=== PATIENT | male | born 1935 | race Two or more races ===

== ENCOUNTER 2017-02-18 02:01 | Emergency (ER) | payer MEDICARE ==
[2017-02-18 02:20] VITALS: TEMP 97.8
--- NOTE | 2017-02-18 02:47 | XR ---
EXAMINATION TYPE: XR chest 2V DATE OF EXAM: 02/18/2017 COMPARISON: NONE HISTORY: Cough TECHNIQUE: Frontal and lateral views of the chest are obtained. FINDINGS: There is a relative poor inspiration. There is no heart failure. Heart size is normal. I s ee no pleural effusion. There is spurring in the thoracic spine. There is slight coarsening of inters titial markings. IMPRESSION: Mild pulmonary fibrotic changes. No acute lung disease.
[2017-02-18] MEDS ORDERED: methylPREDNISolone SOD SUCCI 125 MG/2 ML VIAL IV STA (02:52)
[2017-02-18] MEDS ORDERED: SODIUM CHLORIDE 0.9% 1,000 ML IV STA (02:52)
[2017-02-18] MEDS ORDERED: SODIUM CHLORIDE 0.9% 500 ML IV STA (02:52)
[2017-02-18] MEDS ORDERED: IPRATROPIUM-ALBUTEROL 3 ML NEB INHALATION STA (02:52)
[2017-02-18] MEDS ORDERED: KETOROLAC 30 MG/ML 1 ML VIAL IVP STA (02:54)
[2017-02-18] MEDS ORDERED: MORPHINE SULFATE 10 MG/ML SYRINGE IVP STA (02:54)
[2017-02-18] MEDS ORDERED: MORPHINE SULFATE 4 MG/ML SYRINGE IVP STA (03:07)
--- NOTE | 2017-02-18 03:18 | ED ---
General Adult HPI - General Chief complaint: Abdominal Pain Stated complaint: Rib Pain Time Seen by Provider: 02/18/17 02:18 Source: patient, family, RN notes reviewed, old records reviewed Mode of arrival: ambulatory Limitations: no limitations - History of Present Illness Initial comments: This is an 81-year-old male to the ER for evaluation. Patient coming in for several pain and right-sided rib pain shortness of breath. There is 4 days of similar symptoms. Restating cough and congestion medication without help. Patient has history of approximately COPD and heart disease. Patient denies sore chest pain no fevers but has not been feeling well. Patient's old recent hospitalization was when he did have stent placed about was quite sometime ago. No other known sick contacts. - Related Data Home Medications Medication Instructions Recorded Confirmed Calcium Polycarbophil [Fibercon] 625 mg PO DAILY 10/31/15 11/04/15 Finasteride [Proscar] 5 mg PO DAILY 10/31/15 10/31/15 Insulin NPH Human Isophane 30 unit SQ QAM 10/31/15 11/04/15 [NovoLIN N] Insulin Regular, Human [NovoLIN R] 0 unit SQ TID PRN 10/31/15 10/31/15 Levothyroxine Sodium [Synthroid] 125 mcg PO DAILY 10/31/15 10/31/15 Lisinopril [Zestril] 10 mg PO DAILY 10/31/15 10/31/15 Metoprolol Tartrate [Lopressor] 12.5 mg PO BID 10/31/15 10/31/15 Tamsulosin HCl [Flomax] 0.4 mg PO BID 10/31/15 10/31/15 diphenhydrAMINE HCL [Vicks 25 mg PO HS 10/31/15 11/04/15 Qlearquil Nighttime] Isosorbide Mononitrate ER [Imdur] 30 mg PO DAILY 11/04/15 11/04/15 Previous Rx's Medication Instructions Recorded Aspirin 325 mg PO DAILY #30 tab 11/05/15 Atorvastatin [Lipitor] 80 mg PO HS #30 tab 11/05/15 Clopidogrel [Plavix] 75 mg PO DAILY #30 tab 11/05/15 Isosorbide Mononitrate ER [Imdur] 30 mg PO DAILY #30 tab.er.24h 11/05/15 Lisinopril [Zestril] 10 mg PO DAILY #30 tab 11/05/15 Metoprolol Tartrate [Lopressor] 25 mg PO BID #60 tab 11/05/15 Nitroglycerin Sl Tabs [Nitrostat] 0.4 mg SUBLINGUAL Q5M PRN #25 tab 11/05/15 Zolpidem [Ambien] 5 mg PO HS PRN #5 tab 11/05/15 Albuterol Sulfate [Proair Hfa] 1 - 2 puff INHALATION Q4H PRN #1 02/18/17 inhaler Azithromycin [Zithromax Z-pack] 0 mg PO DIRECTED #1 pack 02/18/17 Benzonatate [Tessalon Perles] 100 mg PO TID PRN #30 capsule 02/18/17 HYDROcodone/APAP 5-325MG [[facility] 1 tab PO Q6HR PRN #20 tab 02/18/17 5-325] Allergies Allergy/AdvReac Type Severity Reaction Status Date / Time No Known Allergies Allergy Verified 10/31/15 15:38 Review of Systems ROS Statement: Those systems with pertinent positive or pertinent negative responses have been documented in the HPI. ROS Other: All systems not noted in ROS Statement are negative. Past Medical History Past Medical History: Chest Pain / Angina, Diabetes Mellitus, GERD/Reflux, Hyperlipidemia, Hypertension, Prostate Disorder, Thyroid Disorder, Vascular Disorder Additional Past Medical History / Comment(s): bad circulation legs, "hands shake ", enlarged prostate History of Any Multi-Drug Resistant Organisms: None Reported Past Surgical History: Cholecystectomy, Heart Catheterization Additional Past Surgical History / Comment(s): pt received heart cath with 1 stent to om radial approach 11/04/2015, cataracts removed from each eye Past Anesthesia/Blood Transfusion Reactions: No Reported Reaction Additional Past Anesthesia/Blood Transfusion Reaction / Comment(s): pt is a jehovah witness, no blood transfusions Past Psychological History: No Psychological Hx Reported Smoking Status: Former smoker Past Alcohol Use History: Rare Past Drug Use History: None Reported - Past Family History Mother Family Medical History: No Reported History Father Family Medical History: Coronary Artery Disease (CAD), Vascular Disorder General Exam Limitations: no limitations General appearance: alert, in no apparent distress Head exam: Present: atraumatic, normocephalic, normal inspection Eye exam: Present: normal appearance, PERRL, EOMI. Absent: scleral icterus, conjunctival injection, periorbital swelling ENT exam: Present: normal exam, mucous membranes moist Neck exam: Present: normal inspection. Absent: tenderness, meningismus, lymphadenopathy Respiratory exam: Present: normal lung sounds bilaterally. Absent: respiratory distress, wheezes, rales, rhonchi, stridor Cardiovascular Exam: Present: regular rate, normal rhythm, normal heart sounds, other (Right rib tenderness). Absent: systolic murmur, diastolic murmur, rubs, gallop, clicks GI/Abdominal exam: Present: soft, normal bowel sounds. Absent: distended, tenderness, guarding, rebound, rigid Extremities exam: Present: normal inspection, full ROM, normal capillary refill. Absent: tenderness, pedal edema, joint swelling, calf tenderness Back exam: Present: normal inspection Neurological exam: Present: alert, oriented X3, CN II-XII intact Psychiatric exam: Present: normal affect, normal mood Skin exam: Present: warm, dry, intact, normal color. Absent: rash Course Vital Signs 02/18/17 02/18/17 02/18/17 02:13 03:13 03:24 Temperature 97.8 F Pulse Rate 58 L 56 L 56 L Respiratory 18 17 Rate Blood Pressure 197/84 147/65 O2 Sat by Pulse 96 95 Oximetry 02/18/17 02/18/17 02/18/17 03:39 04:15 06:10 Temperature Pulse Rate 55 L 58 L 56 L Respiratory 18 17 Rate Blood Pressure 140/63 154/67 O2 Sat by Pulse 95 94 L Oximetry 02/18/17 06:38 Temperature Pulse Rate 64 Respiratory 17 Rate Blood Pressure 146/63 O2 Sat by Pulse 96 Oximetry - Reevaluation(s) Reevaluation #1: 02/18/17 05:16 Patient is still having significant pain, despite pain medications, patient is worse when he takes a deep breath worse when he coughs EKG Findings - EKG Comments: EKG Findings:: EKG shows sinus bradycardia rate of 59, VT 1:30, QRS 1:30, QTc 475 Medical Decision Making - Medical Decision Making 81 male the ER for evaluation of right-sided rib pain worse when he coughs. Extensive evaluation goes and find patient's pain. Patient refuses to stay for heart or further testing. Patient given pain control will be discharged home - Lab Data Result diagrams: 02/18/17 03:20 02/18/17 03:20 Lab Results 02/18/17 02/18/17 02/18/17 Range/Units 03:20 03:20 03:20 WBC 11.5 H (3.8-10.6) k/uL RBC 4.32 (4.30-5.90) m/uL Hgb 13.6 (13.0-17.5) gm/dL Hct 39.8 (39.0-53.0) % MCV 92.2 (80.0-100.0) fL MCH 31.4 (25.0-35.0) pg MCHC 34.1 (31.0-37.0) g/dL RDW 12.1 (11.5-15.5) % Plt Count 250 (150-450) k/uL Neutrophils % 70 % Lymphocytes % 15 % Monocytes % 10 % Eosinophils % 3 % Basophils % 1 % Neutrophils # 8.0 H (1.3-7.7) k/uL Lymphocytes # 1.8 (1.0-4.8) k/uL Monocytes # 1.1 H (0-1.0) k/uL Eosinophils # 0.3 (0-0.7) k/uL Basophils # 0.1 (0-0.2) k/uL PT (9.0-12.0) sec INR (<1.2) APTT (22.0-30.0) sec Sodium 132 L (137-145) mmol/L Potassium 4.7 (3.5-5.1) mmol/L Chloride 102 (98-107) mmol/L Carbon Dioxide 22 (22-30) mmol/L Anion Gap 8 mmol/L BUN 16 (9-20) mg/dL Creatinine 1.27 H (0.66-1.25) mg/dL Est GFR (MDRD) Af Amer >60 (>60 ml/min/1.73 sqM) Est GFR (MDRD) Non-Af 55 (>60 ml/min/1.73 sqM) Glucose 101 H (74-99) mg/dL Calcium 9.2 (8.4-10.2) mg/dL Magnesium 1.7 (1.6-2.3) mg/dL Total Bilirubin 0.5 (0.2-1.3) mg/dL AST 27 (17-59) U/L ALT 32 (21-72) U/L Alkaline Phosphatase 72 (38-126) U/L Total Creatine Kinase 751 H (55-170) U/L CK-MB (CK-2) 4.0 H* (0.0-2.4) ng/mL CK-MB (CK-2) Rel Index 0.5 Troponin I <0.012 (0.000-0.034) ng/mL NT-Pro-B Natriuret Pep pg/mL Total Protein 6.6 (6.3-8.2) g/dL Albumin 3.6 (3.5-5.0) g/dL Lipase (23-300) U/L 02/18/17 02/18/17 02/18/17 Range/Units 03:20 03:20 03:20 WBC (3.8-10.6) k/uL RBC (4.30-5.90) m/uL Hgb (13.0-17.5) gm/dL Hct (39.0-53.0) % MCV (80.0-100.0) fL MCH (25.0-35.0) pg MCHC (31.0-37.0) g/dL RDW (11.5-15.5) % Plt Count (150-450) k/uL Neutrophils % % Lymphocytes % % Monocytes % % Eosinophils % % Basophils % % Neutrophils # (1.3-7.7) k/uL Lymphocytes # (1.0-4.8) k/uL Monocytes # (0-1.0) k/uL Eosinophils # (0-0.7) k/uL Basophils # (0-0.2) k/uL PT 11.3 (9.0-12.0) sec INR 1.1 (<1.2) APTT 22.1 (22.0-30.0) sec Sodium (137-145) mmol/L Potassium (3.5-5.1) mmol/L Chloride (98-107) mmol/L Carbon Dioxide (22-30) mmol/L Anion Gap mmol/L BUN (9-20) mg/dL Creatinine (0.66-1.25) mg/dL Est GFR (MDRD) Af Amer (>60 ml/min/1.73 sqM) Est GFR (MDRD) Non-Af (>60 ml/min/1.73 sqM) Glucose (74-99) mg/dL Calcium (8.4-10.2) mg/dL Magnesium (1.6-2.3) mg/dL Total Bilirubin (0.2-1.3) mg/dL AST (17-59) U/L ALT (21-72) U/L Alkaline Phosphatase (38-126) U/L Total Creatine Kinase (55-170) U/L CK-MB (CK-2) (0.0-2.4) ng/mL CK-MB (CK-2) Rel Index Troponin I (0.000-0.034) ng/mL NT-Pro-B Natriuret Pep 608 pg/mL Total Protein (6.3-8.2) g/dL Albumin (3.5-5.0) g/dL Lipase 221 (23-300) U/L - Radiology Data Radiology results: report reviewed (Chest x-ray right rib x-rays negative for traumatic injury or fracture, CT a chest negative for acute disease), image reviewed Disposition Clinical Impression: Rib pain on right side, Bronchitis Disposition: HOME SELF-CARE Condition: Good Instructions: Rib Contusion (ED) Prescriptions: Albuterol Sulfate [Proair Hfa] 1 - 2 puff INHALATION Q4H PRN #1 inhaler PRN Reason: Shortness Of Breath Azithromycin [Zithromax Z-pack] 0 mg PO DIRECTED #1 pack Benzonatate [Tessalon Perles] 100 mg PO TID PRN #30 capsule PRN Reason: Cough HYDROcodone/APAP 5-325MG [[facility] 5-325] 1 tab PO Q6HR PRN #20 tab PRN Reason: Pain Referrals: Keven Porter MD [Primary Care Provider] - 1-2 days
[2017-02-18 03:36] LABS: Basophils # (A) 0.1 k/uL (0-0.2); Basophils % (A) 1 %; CH 32.9; CHCM 35.9; Eosinophils # (A) 0.3 k/uL (0-0.7); Eosinophils % (A) 3 %; HCT 39.8 % (39.0-53.0); HDW 2.73; HGB 13.6 gm/dL (13.0-17.5); Luc # (Auto) 0.18; Luc % (Auto) 2; Lymphocytes # (A) 1.8 k/uL (1.0-4.8); Lymphocytes % (A) 15 %; MCH 31.4 pg (25.0-35.0); MCHC 34.1 g/dL (31.0-37.0); MCV 92.2 fL (80.0-100.0); Monocytes # (A) 1.1 k/uL (0-1.0); Monocytes % (A) 10 %; Neutrophils % (A) 70 %; RBC 4.32 m/uL (4.30-5.90); RDW 12.1 % (11.5-15.5); WBC 11.5 k/uL (3.8-10.6); WBC (Perox) 11.34
[2017-02-18 03:49] LABS: INR 1.1 (<1.2); Partial Thromboplastin Time 22.1 sec (22.0-30.0); Prothrombin Time 11.3 sec (9.0-12.0)
[2017-02-18 03:50] LABS: ALT 32 U/L (21-72); AST 27 U/L (17-59); Alkaline Phosphatase 72 U/L (38-126); Anion Gap 8 mmol/L; Blood Urea Nitrogen 16 mg/dL (9-20); Calcium 9.2 mg/dL (8.4-10.2); Carbon Dioxide 22 mmol/L (22-30); Chloride 102 mmol/L (98-107); Glucose 101 mg/dL (74-99); Magnesium 1.7 mg/dL (1.6-2.3); Non-African American GFR(MDRD) 55 (>60 ml/min/1.73 sqM); Potassium 4.7 mmol/L (3.5-5.1); Sodium 132 mmol/L (137-145); Total Bilirubin 0.5 mg/dL (0.2-1.3); Total Protein 6.6 g/dL (6.3-8.2)
[2017-02-18 03:56] LABS: Creatine Kinase 751 U/L (55-170)
[2017-02-18 04:09] LABS: Troponin I <0.012 ng/mL (0.000-0.034)
--- NOTE | 2017-02-18 04:15 | XR ---
EXAM: XR Right Ribs, 2 Views CLINICAL HISTORY: Reason: Pain TECHNIQUE: Frontal and oblique views of the right ribs. COMPARISON: No relevant prior studies available. FINDINGS: Lungs: Unremarkable as visualized. No consolidation. Pleural space: Unremarkable. No pneumothorax. Bones/joints: Unremarkable. No acute fracture. Degenerative changes in the visualized thoracic spine Other findings: Calcification near the costochondral junction. IMPRESSION: No acute bony abnormality
[2017-02-18] MEDS ORDERED: RX INFO: IV CONTRAST WAS GIVEN 1 EACH MISC MISCELLANE PRN (05:04)
--- NOTE | 2017-02-18 06:10 | CT ---
EXAM: CT Angiography Chest With Intravenous Contrast CLINICAL HISTORY: Reason: Pain TECHNIQUE: Axial computed tomographic angiography images of the chest with intravenous contrast using pulmonary embolism protocol. CTDI is 270.3 mGy and DLP is 725.6 mGy-cm. This CT exam was performed using one or more of the following dose reduction techniques: automated exposure control, adjustment of the mA and/or kV according to patient size, and/or use of iterative reconstruction technique. MIP reconstructed images were created and reviewed. COMPARISON: No prior CT FINDINGS: Pulmonary arteries: No filling defects in the pulmonary arteries to suggest thrombus. Aorta: Calcified atherosclerotic tortuous thoracic aorta. No thoracic aortic aneurysm. Lungs: Mild emphysematous change. Faint peripheral nodular opacity in the left upper lobe (image 70). This may reflect focal inflammatory/infectious process. Close follow-up recommended to exclude underlying developing nodule. Minimal bronchiectatic changes in the lower lobes. Pleural space: Small right pleural effusion. No pneumothorax. Heart: Coronary artery calcification. No pericardial effusion. No evidence of RV dysfunction. Mediastinum: Small hiatal hernia Bones/joints: No acute fracture. No dislocation. Soft tissues: Unremarkable. Lymph nodes: Small mediastinal lymph nodes, likely reactive. Small hilar lymph nodes, nonspecific. IMPRESSION: Negative for pulmonary embolism. Mild emphysematous change. Findings the left upper lobe which may reflect focal inflammatory/infectious process. Consider close follow-up chest CT recommended in 3-6 months to exclude underlying developing nodule. Small right pleural effusion. Small lymph nodes probably reactive [employer] 02/18/17 06:19 Verify Receipt Verified receipt with FRANCINE Gutierrez on 02/18 06:18 (-05:00)
[2017-02-18 06:12] VITALS: RESP 17
[2017-02-18 06:41] VITALS: BP 146/63; PULSE 64
== END 2017-02-18 06:50 | disposition home or self-care (01) ==
LOC: EC 02:01
DX: J40 Bronchitis, not specified as acute or chronic (principal); R07.81 Pleurodynia; E78.5 Hyperlipidemia, unspecified; I10 Essential (primary) hypertension; E07.9 Disorder of thyroid, unspecified; E11.9 Type 2 diabetes mellitus without complications; N42.9 Disorder of prostate, unspecified; Z90.49 Acquired absence of other specified parts of digestive tract; Z95.5 Presence of coronary angioplasty implant and graft; Z79.4 Long term (current) use of insulin; Z79.899 Other long term (current) drug therapy; Z87.891 Personal history of nicotine dependence
CPT/HCPCS: 99285; 96374; 96375 ×2; 96361 ×3; 36415; 94640; 93005; 83880; 80053; 82550; 82553; 83690; 83735; 84484; 85025; 85610; 85730; 87040; 71020; 71100; 71275; J2270; J2930; Q9967; J1885

== ENCOUNTER → 2017-10-27 | Outpatient (CLI) | payer MEDICARE ==
--- NOTE | 2017-10-27 19:01 | US ---
EXAMINATION TYPE: US abdomen limited DATE OF EXAM: 10/27/2017 COMPARISON: NONE CLINICAL HISTORY: R19.00 Abdominal mass. Lump RUQ rib area. DESCRIPTION: Imaging over the area of interest negative for mass. No fluid seen. Underlying liver is heterogenous IMPRESSION: No sonographic correlate for the palpable finding.
== END | disposition home or self-care (01) ==
LOC: RADUSMAIN 17:32
PROVIDERS: ATTEND Physician Assistant
DX: R19.00 Intra-abdominal and pelvic swelling, mass and lump, unspecified site (principal)
CPT/HCPCS: 76705

== ENCOUNTER → 2017-12-12 | Outpatient (CLI) | payer MEDICARE ==
[2017-12-12 11:19] LABS: Glucose,Whole Blood 72 mg/dL (75-99)
--- NOTE | 2017-12-12 13:15 | CT ---
EXAMINATION TYPE: CT ChestAbdPelvis w con DATE OF EXAM: 12/12/2017 COMPARISON: 02/20/2017 HISTORY: lung mass,diverticulitis CT DLP: 1950.3 mGycm Automated exposure control for dose reduction was used. CONTRAST: CT scan of the chest, abdomen and pelvis is performed with Oral Contrast and with IV Contrast, patien t injected with 100 mL of Isovue 300. FINDINGS: LUNGS: There is a 6 mm pleural-based nodule in the left upper lobe. Additional 1 to 2 mm subpleural n odularity seen in the left upper lobe. Diffuse emphysematous changes are noted. Interlobular septal thickening at the lung bases suggest a d egree of mild interstitial lung disease in the right. Basilar bronchiectasis noted. No consolidative pneumonia, pleural effusion, or pneumothorax. MEDIASTINUM: There is a 1.1 cm right hilar area of lymphadenopathy. Within the pretracheal space ther e is a additional 1.1 cm area of lymphadenopathy. OTHER: No additional significant abnormality is seen. LIVER/GB: Surgical clips in the gallbladder fossa noted. PANCREAS: No significant abnormality is seen. SPLEEN: No significant abnormality is seen. ADRENALS: No significant abnormality is seen. KIDNEYS: Simple appearing right renal cysts are noted. No hydronephrosis. BOWEL: Bowel gas pattern is nonspecific there is a small hiatal hernia and changes of diverticulosis of the colon. Appendix normal. There is wall thickening involving the transverse colon could be asso ciated with a mild colitis. LYMPH NODES: No greater than 1 cm abdominal or pelvic lymph nodes are appreciated. OSSEOUS STRUCTURES: Hypertrophic and degenerative change of the spine noted.. OTHER: Prostate gland is enlarged. Atherosclerotic change of the aorta. There is asymmetry of the sub cutaneous tissues on the left involving the upper abdomen which could represent a small soft tissue l ipoma. Retrospectively stable from previous exam. Fat-containing bilateral inguinal hernias. IMPRESSION: 1. There is a 6 mm pleural-based nodule left upper lobe too small to characterize. Six-month follow-u p exam be obtained to assess for stability. There is nonspecific mediastinal and right hilar borderli ne adenopathy. 2. Changes of COPD with chronic appearing subsegmental changes along the lateral margin the right low er lobe may been the basis of a chronic area of interstitial lung disease or atelectasis. 3. Diverticulosis of the colon with no CT evidence of diverticulitis. Transverse colon demonstrates w all thickening which could been the basis of incomplete distention. No surrounding inflammatory lozoya es although a mild colitis not excluded. Correlate clinically. 4. Small hiatal hernia.
== END | disposition home or self-care (01) ==
LOC: RADCTMAIN 11:01
PROVIDERS: ATTEND Surgery Plastic and Reconstructive Surgery
DX: J44.9 Chronic obstructive pulmonary disease, unspecified (principal); R91.1 Solitary pulmonary nodule; R59.0 Localized enlarged lymph nodes; K57.30 Diverticulosis of large intestine without perforation or abscess without bleeding; K44.9 Diaphragmatic hernia without obstruction or gangrene
CPT/HCPCS: 82565; 84520; 71260; 74177; 36415; Q9967

== ENCOUNTER → 2021-06-24 | Outpatient (CLI) | payer MEDICARE ==
--- NOTE | 2021-06-24 14:17 | XR ---
EXAMINATION TYPE: XR chest 2V DATE OF EXAM: 06/24/2021 COMPARISON: 02/24/2017 TECHNIQUE: PA and lateral views submitted. HISTORY: Shortness of breath FINDINGS: Heart is enlarged and there is atherosclerotic change aorta with coarsened interstitium. Chronic defo rmity and pleural thickening along the lateral margin of the right rib cage. AC joint arthropathy. Mi ld hyperexpansion of the lungs. Subpleural nodule noted by previous CT scan not well seen by standard x-ray. IMPRESSION: 1. COPD. Favor chronic interstitial lung disease such as pulmonary fibrosis over interstitial pneumon itis. Correlate clinically. 2. Cardiomegaly
== END | disposition home or self-care (01) ==
LOC: RADXRMAIN 13:58
PROVIDERS: ATTEND Family Medicine
DX: J44.9 Chronic obstructive pulmonary disease, unspecified (principal); I51.7 Cardiomegaly
CPT/HCPCS: 71046